=== PATIENT | male | born 1980 | race Caucasian/White ===

== ENCOUNTER 2019-09-02 12:11 | Emergency (ER) | payer OTHER ==
[2019-09-02] MEDS ORDERED: Ibuprofen TAB* 600 MG PO ONE (13:11)
[2019-09-02] MEDS ORDERED: hydrOXYzine HCL TAB* 25 MG PO ONE (13:11)
--- NOTE | 2019-09-02 13:23 | ED ---
Psychiatric Complaint - HPI Summary HPI Summary: Patient is a 39 y/o M presenting to [facility] via EMS with complaints of an anxiety attack that occurred while he was at work earlier today. Patient states that he used to take anti-anxiety medications but they were ineffective. As a result, he started smoking marijuana. However, he stopped around a year ago as his employer was randomly drug testing employees. He states that his anxiety attacks have been worse in that past year and today was the most severe episode that he has experienced. He states that he was feeling light-headed during the episode as well. Currently, he reports that he feels "overwhelmed" but overall feels better compared to 1-2 hours ago. No SI, patient notes that he has four children to look after. He notes that he has a LARA that he rates 7/10 in severity. Patient notes that he has had some additional financial, home, and work stress recently. He smokes a pack of cigarettes daily, denies alcohol and other substance usage. Home medications and allergies are reviewed. Home Medications Medication Instructions Recorded Confirmed Type hydrOXYzine pamoate [Vistaril] 25 mg PO Q6HR #20 capsule 09/02/19 Rx - History Of Current Complaint Chief Complaint: EDPsychosocial Time Seen by Provider: 09/02/19 12:49 Hx Obtained From: Patient Onset/Duration: Still Present Severity Currently: Severe Character: Anxious Aggravating Factor(s): Recent Stress Has Suicidal: Denies: Thoughts - Allergies/Home Medications Allergies/Adverse Reactions: Allergies Allergy/AdvReac Type Severity Reaction Status Date / Time warfarin [From Coumadin] Allergy Intermediate Hives Verified 09/02/19 12:16 PMH/Surg Hx/FS Hx/Imm Hx Endocrine/Hematology History: Denies: Hx Diabetes, Hx Sickle Cell Disease Cardiovascular History: Reports: Hx Hypertension - PT STATES HAS .. BUT NO MEDS Denies: Hx Pacemaker/ICD, Other Cardiovascular Problems/Disorders Respiratory History: Denies: Other Respiratory Problems/Disorders GI History: Denies: Other GI Disorders History: Denies: Other Problems/Disorders Musculoskeletal History: Reports: Hx Arthritis - RT FOOT/ANKLE Denies: Other Musculoskeletal History Sensory History: Denies: Hx Contacts or Glasses, Hx Hearing Aid Opthamlomology History: Denies: Hx Contacts or Glasses Psychiatric History: Reports: Hx Anxiety - NO MEDS, Hx Depression Denies: Hx Panic Disorder - Cancer History Hx Chemotherapy: No - Surgical History Surgery Procedure, Year, and Place: 2007 RIGHT FOOT [facility]. 2010 RT INGHERNIA REPAIR [facility]. 1994 APPENDECTOMY [facility]. 09/2012 LEFT HAND SURGERY [facility]. 2012 LEFT HAND SURGERY [facility] Hx Anesthesia Reactions: No Infectious Disease History: No Infectious Disease History: Denies: Traveled Outside the [place] in Last 30 Days - Family History Known Family History: Positive: Diabetes - Social History Alcohol Use: None Substance Use Type: Reports: None Smoking Status (MU): Light Every Day Tobacco Smoker Type: Cigarettes Amount Used/How Often: 1Pack per 2 days Have You Smoked in the Last Year: Yes Review of Systems Neurological/Mental Status: Other - positive - light-headedness Positive: Headache Positive: Anxious All Other Systems Reviewed And Are Negative: Yes Physical Exam - Summary Physical Exam Summary: Constitutional: Well-developed, Well-nourished, Alert. (-) Distressed Skin: Warm, Dry HENT: Normocephalic; Atraumatic Eyes: Conjunctiva normal Neck: Musculoskeletal ROM normal neck. (-) JVD, (-) Stridor, (-) Tracheal deviation Cardio: Rhythm regular, rate normal, Heart sounds normal; Intact distal pulses; Radial pulses are 2+ and symmetric. (-) Murmur Pulmonary/Chest wall: Effort normal. (-) Respiratory distress, (-) Wheezes, (-) Rales Abd: Soft, (-) tenderness, (-) Distension, (-) Guarding, (-) Rebound Musculoskeletal: (-) Edema Lymph: (-) Cervical adenopathy Neuro: Alert, Oriented x3 Psych: Mildly Anxious Appearing Triage Information Reviewed: Yes Vital Signs On Initial Exam: Initial Vitals Temp Pulse Resp BP Pulse Ox 98.7 F 91 14 148/96 95 09/02/19 12:13 09/02/19 12:13 09/02/19 12:13 09/02/19 12:13 09/02/19 12:13 Vital Signs Reviewed: Yes Procedures - Sedation Patient Received Moderate/Deep Sedation with Procedure: No Diagnostics - Vital Signs Vital Signs Temp Pulse Resp BP Pulse Ox 09/02/19 12:13 98.7 F 91 14 148/96 95 - Laboratory Lab Statement: Any lab studies that have been ordered have been reviewed, and results considered in the medical decision making process. Course/Dx - Course Course Of Treatment: Patient is here with an anxiety attack. Patient has been suffering from anxiety for years. Patient had no physical complaints today outside of a mild headache. Patient states this feels like his typical anxiety attack but more severe in nature. Patient is currently not on any medicine. Patient was started on Vistaril when necessary and given Motrin here for his headache. Patient is provided resources for his county to contact the mental health services there. - Differential Dx/Clinical Impression Provider Diagnosis: Anxiety attack Discharge ED - Sign-Out/Discharge Documenting (check all that apply): Patient Departure - discharge - Discharge Plan Condition: Stable Disposition: HOME Prescriptions: hydrOXYzine pamoate [Vistaril] 25 mg PO Q6HR #20 capsule Patient Education Materials: Anxiety (ED) Referrals: [facility] [Outside] Additional Instructions: Take your medications as prescribed. Use the resources that we have provided you to follow up with a psychiatrist. Return to ED for any thoughts of self- harm or other concerning symptoms. - Billing Disposition and Condition Condition: STABLE Disposition: Home - Attestation Statements Document Initiated by Jan: Yes Documenting Scribe: TATYANA ESPOSITO Provider For Whom Jan is Documenting (Include Credential): ROBERTO ANGUIANO MD Scribe Attestation: TATYANA Verdugo scribed for ROBERTO ANGUIANO MD on 09/02/19 at 1544. Scribe Documentation Reviewed: Yes Provider Attestation: The documentation as recorded by the TATYANA gonzalez accurately reflects the service I personally performed and the decisions made by me, ROBERTO ANGUIANO MD Status of Scribe Document: Viewed
[2019-09-02 14:10] VITALS: BP 151/96
== END 2019-09-02 13:40 | disposition home or self-care (01) ==
LOC: ED 12:11
DX: F41.0 Panic disorder [episodic paroxysmal anxiety] (principal); F17.210 Nicotine dependence, cigarettes, uncomplicated; I10 Essential (primary) hypertension; Z90.89 Acquired absence of other organs; Z88.8 Allergy status to other drugs, medicaments and biological substances
CPT/HCPCS: 99282; A9270-GY